=== PATIENT | female | born 2000 | race African-American/Black ===

== ENCOUNTER 2020-06-18 09:29 | Outpatient (CLI) | payer OTHER ==
--- NOTE | 2020-06-18 10:53 | ULT ---
Complete obstetrical ultrasound INDICATION: Evaluate anatomy and cervical length TECHNIQUE: Grayscale, M-mode Doppler and Doppler images were obtained of the abdomen and pelvis to ev aluate the patient's known . COMPARISON: Prior obstetrical ultrasound dated March 08, 2020 FINDINGS: Number of gestations: Single. Presentation: Cephalic. Placental location: Anterior Previa: No evidence for previa. Cervical length: 4.25 cm AYUSH: 14.48 cm. heart rate: 142 bpm. Biparietal diameter: 4.46cm, 19 weeks and 4 days, Not calculated.. Head circumference: 16.60 cm, 19 weeks and 3 days, Not calculated. Abdominal circumference: 14.00 cm, 19 weeks and 3 days, Not calculated. Femoral length: 2.96cm, 19 weeks and 1 day, Not calculated. Estimated weight: 284 g +/- 41g (0 lbs. 10 oz. +/- 1 ounce), 10th percentile SURVEY: head: Normal appearing. Cerebellum: Normal appearing. Cisterna magna: Normal appearing. Lateral ventricles: Normal appearing. 4 chamber heart: Not well seen. Stomach: Normal appearing. Kidneys: Normal appearing. Cord insertion: Normal appearing. Bladder: Normal appearing. Spine: Normal appearing. Lips and nose: Normal appearing. Extremities: Normal appearing. Three-vessel CORD: Normal appearing. The average gestational age by ultrasound is 19 weeks and 3 dayswith estimated due date of November 09. The estimated dates by clinical data is 20 weeks and 1 daywith estimated due date of November 04, 2020. The adnexa were not well seen. IMPRESSION: 1. Single live intrauterine gestation with size and dates as above. 2. The four-chamber heart was not well demonstrated on the current examination. Majority the spine jovel d a normal appearance; however, the longitudinal image was slightly limited. A follow-up ultrasound in one to 2 weeks is recommended for reevaluation of the heart and spine.
== END 2020-06-18 09:30 | disposition home or self-care (01) ==
LOC: BICULT 09:29
PROVIDERS: ATTEND Family Medicine
DX: Z34.02 Encounter for supervision of normal first pregnancy, second trimester (principal); Z3A.19 19 weeks gestation of pregnancy
CPT/HCPCS: 76805